=== PATIENT | male | born 1975 | race Caucasian/White ===

== ENCOUNTER 2019-04-26 13:25 | Emergency (ER) | payer BC ==
[2019-04-26] MEDS ORDERED: TETANUS & DIPHTHERIA TOX,ADULT 0.5 ML VIAL ONE (14:19)
[2019-04-26] MEDS ORDERED: PIPER/TAZO/NS 3.375gm 3.375 GM/100 ML BAG ONE (15:05)
[2019-04-26] MEDS ORDERED: BUPIVACAINE 0.5% PF 10 ML VIAL ONE (15:05)
[2019-04-26] MEDS ORDERED: LIDOCAINE 1% MPF 5 ML VIAL ONE (15:05)
--- NOTE | 2019-04-26 15:09 | RAD REPORT ---
EXAM DESCRIPTION: RAD - Hand Right 3 View - 04/26/2019 2:58 pm CLINICAL HISTORY: PAIN COMPARISON: <Comparisons> FINDINGS: Soft tissue swelling is seen along the dorsum of the hand. No acute fracture, dislocation or foreign body.
--- NOTE | 2019-04-26 15:33 | EDPHYS ---
Physician Documentation [facility] Name: Faraz Camara Age: 43 yrs Sex: Male : 1975 Arrival Date: 04/26/2019 Time: 13:25 Bed 25 Private MD: ED Physician Ishaan Holcomb HPI: 04/26 14:06 This 43 yrs old Male presents to ER via Ambulatory with complaints of Hand cp Injury. 14:06 The patient or guardian reports a laceration, pain, swelling, tenderness. The cp complaints affect the dorsum of right hand. Onset: The symptoms/episode began/occurred yesterday. 14:06 Context: Patient reports he was using pry bar to geno up house and hand slipped causing cp him to strike hand against wood. Patient reports he covered wound wound with OTC stitches. 14:06 Associated signs and symptoms: Pertinent negatives: cyanosis distally, decreased cp sensation distally, fever. Historical: - Allergies: 13:46 iv dye; aj1 - Home Meds: 13:46 Zetia Oral [Active]; Omeprazole Oral [Active]; aj1 - PMHx: 13:46 hemorrhoids; High Cholesterol; GERD; aj1 - Immunization history:: Flu vaccine is not up to date. - Social history:: Smoking status: Patient/guardian denies using tobacco. - Ebola Screening: : Patient denies travel to an Ebola-affected area in the 21 days before illness onset. ROS: 14:10 Constitutional: Negative for body aches, chills, fever, poor PO intake. cp 14:10 Eyes: Negative for injury, pain, redness, and discharge. cp 14:10 ENT: Negative for drainage from ear(s), ear pain, sore throat, difficulty swallowing, difficulty handling secretions. 14:10 Cardiovascular: Negative for chest pain. 14:10 Respiratory: Negative for cough, shortness of breath, wheezing. 14:10 Abdomen/GI: Negative for abdominal pain, nausea, vomiting, and diarrhea, constipation. 14:10 MS/extremity: Positive for erythema, laceration, pain, swelling, tenderness, of the dorsum right metacarpal head fifth finger, Negative for paresthesias. 14:10 All other systems are negative. Exam: 14:30 Constitutional: The patient appears in no acute distress, alert, awake, non-toxic, well cp developed, well nourished. 14:30 Head/Face: Normocephalic, atraumatic. cp 14:30 Chest/axilla: Inspection: normal. 14:30 Cardiovascular: Rate: normal, Rhythm: regular. 14:30 Respiratory: the patient does not display signs of respiratory distress, Respirations: normal, no use of accessory muscles, labored breathing, is not present. 14:30 Musculoskeletal/extremity: Extremities: grossly normal except: noted in the dorsal side right fifth MCP joint: erythema, laceration, swelling, tenderness, ROM: full active range of motion, in the right hand, Perfusion: the extremity is normally perfused throughout, Sensation intact. 14:30 Skin: cellulitis, that is moderate, on the right hand, injury, laceration(s), the wound is approximately 2.5 cm(s), of the dorsal side right fifth MCP joint, that can be described as contaminated, without bleeding, purulent drainage from wound. Vital Signs: 13:46 BP 129 / 89; Pulse 80; Resp 18; Temp 98.0; Pulse Ox 98% on R/A; Weight 95.25 kg (R); aj1 Height 6 ft. 1 in. (185.42 cm) (R); Pain 9/10; 15:00 BP 126 / 80; Pulse 81; Resp 18; Temp 98.1; Pulse Ox 100% on R/A; mg2 16:15 BP 122 / 78; Pulse 81; Resp 18; Temp 98; Pulse Ox 100% on R/A; Pain 2/10; mg2 13:46 Body Mass Index 27.71 (95.25 kg, 185.42 cm) aj1 MDM: 13:52 Patient medically screened. cp 14:00 Differential diagnosis: dislocation, open fracture, cellulitis. cp 15:30 Data reviewed: vital signs, nurses notes, radiologic studies, plain films, I have cp discussed the patient's presentation/case with the attending Emergency Department Physician; and as a result, I will discharge patient. 15:30 Test interpretation: by ED physician or midlevel provider: plain radiologic studies. cp Counseling: I had a detailed discussion with the patient and/or guardian regarding: the historical points, exam findings, and any diagnostic results supporting the discharge/admit diagnosis, radiology results, the need for outpatient follow up, a hand specialist, to return to the emergency department if symptoms worsen or persist or if there are any questions or concerns that arise at home. Response to treatment: the patient's symptoms have markedly improved after treatment, VSS. Laceration cleaned and irrigated. Wound culture obtained. Wound left open and dressed. Will discharge to home for continued monitoring. 04/26 14:42 Order name: Wound Culture 04/26 13:57 Order name: XRAY Hand RIGHT 3 View; Complete Time: 15:12 04/26 15:12 Interpretation: Report reviewed. 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 Exp: mg2 01/17/2021. Lot #: [id number]. } Route: IM; Site: right deltoid; 14:55 Follow up: Response: No adverse reaction mg2 15:07 Drug: Zosyn 3.375 grams Route: IVPB; Infused Over: 60 mins; Site: left antecubital; la1 16:11 Follow up: Response: No adverse reaction; IV Status: Completed infusion mg2 Disposition: 16:35 Co-signature as Attending Physician, Ishaan Holcomb MD. rn Disposition: 04/26/19 15:32 Discharged to Home. Impression: Laceration without foreign body of right hand, Cellulitis of right upper limb - hand. - Condition is Stable. - Discharge Instructions: Cellulitis, Adult, Nonsutured Laceration Care. - Prescriptions for Augmentin 875- 125 mg Oral Tablet - take 1 tablet by ORAL route every 12 hours for 10 days; 20 tablet. Tramadol 50 mg Oral Tablet - take 1 tablet by ORAL route every 8 hours as needed; 12 tablet. Bactrim DS 800- 160 mg Oral Tablet - take 1 tablet by ORAL route every 12 hours for 10 days; 20 tablet. - Medication Reconciliation Form, Thank You Letter, Antibiotic Education, Prescription Opioid Use form. - Follow up: Francisco Schroeder MD; When: 1 - 2 days; Reason: Wound Recheck. - Problem is new. - Symptoms have improved. Signatures: Dispatcher [employer] EDKimberly Chávez RN RN aj1 Ishaan Holcomb MD MD rn Attema, Lee, RN RN la1 Page, Chin, PA PA cp Gardose, Sushil, RN RN mg2 Corrections: (The following items were deleted from the chart) 16:15 15:32 04/26/2019 15:32 Discharged to Home. Impression: Laceration without foreign body mg2 of right hand; Cellulitis of right upper limb - hand. Condition is Stable. Forms are Medication Reconciliation Form, Thank You Letter, Antibiotic Education, Prescription Opioid Use. Follow up: Francisco Schroeder; When: 1 - 2 days; Reason: Wound Recheck. Problem is new. Symptoms have improved. cp
--- NOTE | 2019-04-26 15:33 | ER ---
Nurse's Notes [facility] Name: Faraz Camara Age: 43 yrs Sex: Male : 1975 Arrival Date: 04/26/2019 Time: 13:25 Bed 25 Private MD: Diagnosis: Laceration without foreign body of right hand;Cellulitis of right upper limb-hand Presentation: 04/26 13:43 Presenting complaint: Patient states: "I was jacking up my back porch and I had a pry aj1 bar and it slipped and I hit my hand straight into the corner of a 4x4, this was yesterday." Laceration noted to right hand, occurred yesterday morning at 0800. Swelling noted to right hand. Transition of care: patient was not received from another setting of care. Onset of symptoms was April 25, 2019 at 08:00. Risk Assessment: Do you want to hurt yourself or someone else? Patient reports no desire to harm self or others. Initial Sepsis Screen: Does the patient meet any 2 criteria? No. Patient's initial sepsis screen is negative. Does the patient have a suspected source of infection? No. Patient's initial sepsis screen is negative. Care prior to arrival: None. 13:43 Method Of Arrival: Ambulatory aj1 13:43 Acuity: ELIZABETH 4 aj1 Triage Assessment: 13:46 General: Appears in no apparent distress. comfortable, Behavior is calm, cooperative, aj1 appropriate for age. Pain: Complains of pain in right hand Pain currently is 5 out of 10 on a pain scale. Neuro: Level of Consciousness is awake, alert, obeys commands, Oriented to person, place, time, situation. Cardiovascular: Patient's skin is warm and dry. Respiratory: Airway is patent Respiratory effort is even, unlabored, Respiratory pattern is regular, symmetrical. Musculoskeletal: Swelling present in right hand. Historical: - Allergies: 13:46 iv dye; aj1 - Home Meds: 13:46 Zetia Oral [Active]; Omeprazole Oral [Active]; aj1 - PMHx: 13:46 hemorrhoids; High Cholesterol; GERD; aj1 - Immunization history:: Flu vaccine is not up to date. - Social history:: Smoking status: Patient/guardian denies using tobacco. - Ebola Screening: : Patient denies travel to an Ebola-affected area in the 21 days before illness onset. Screenin:09 Abuse screen: Denies threats or abuse. Denies injuries from another. Nutritional mg2 screening: No deficits noted. Tuberculosis screening: No symptoms or risk factors identified. Fall Risk None identified. Assessment: 14:08 General: Appears in no apparent distress. comfortable, Behavior is calm, cooperative. mg2 Pain: Complains of pain in right hand Pain does not radiate. Pain currently is 3 out of 10 on a pain scale. Quality of pain is described as aching, Pain began suddenly, 1 day ago. Is intermittent. Neuro: Level of Consciousness is awake, alert, obeys commands, Oriented to person, place, time, situation. Cardiovascular: Capillary refill < 3 seconds Patient's skin is warm and dry. Respiratory: Airway is patent Respiratory effort is even, unlabored, Respiratory pattern is regular, symmetrical. GI: No signs and/or symptoms were reported involving the gastrointestinal system. : No signs and/or symptoms were reported regarding the genitourinary system. EENT: No signs and/or symptoms were reported regarding the EENT system. Derm: Wound noted right hand. Musculoskeletal: Circulation, motion, and sensation intact. Capillary refill < 3 seconds, Swelling present in right hand. Injury Description: Laceration sustained to right hand is not bleeding, was sustained 1 day ago. no active bleeding noted at this time. 15:47 Reassessment: patient up for discharge after iv antibiotic. mg2 Vital Signs: 13:46 BP 129 / 89; Pulse 80; Resp 18; Temp 98.0; Pulse Ox 98% on R/A; Weight 95.25 kg (R); aj1 Height 6 ft. 1 in. (185.42 cm) (R); Pain 9/10; 15:00 BP 126 / 80; Pulse 81; Resp 18; Temp 98.1; Pulse Ox 100% on R/A; mg2 16:15 BP 122 / 78; Pulse 81; Resp 18; Temp 98; Pulse Ox 100% on R/A; Pain 2/10; mg2 13:46 Body Mass Index 27.71 (95.25 kg, 185.42 cm) aj1 ED Course: 13:25 Patient arrived in ED. as 13:45 Triage completed. aj1 13:46 Arm band placed on Patient placed in an exam room. aj1 13:51 Chin Machuca PA is PHCP. cp 13:51 Ishaan Holcomb MD is Attending Physician. cp 13:52 Sushil Wong, DANIEL is Primary Nurse. mg2 14:09 Patient has correct armband on for positive identification. mg2 14:09 No provider procedures requiring assistance completed. mg2 14:59 XRAY Hand RIGHT 3 View In Process Unspecified. EDMS 15:04 Inserted saline lock: 20 gauge in left antecubital area, using aseptic technique. lt1 15:30 Francisco Schroeder MD is Referral Physician. cp 15:30 Wound care: to laceration located on right hand was cleaned with Betadine, irrigated mg2 with normal saline, dressed with Neosporin, 4X4s, by Brigette Neely Patient tolerated well. 16:11 IV discontinued, intact, bleeding controlled, No redness/swelling at site. Pressure mg2 dressing applied. 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 Exp: mg2 01/17/2021. Lot #: [id number]. } Route: IM; Site: right deltoid; 14:55 Follow up: Response: No adverse reaction mg2 15:07 Drug: Zosyn 3.375 grams Route: IVPB; Infused Over: 60 mins; Site: left antecubital; la1 16:11 Follow up: Response: No adverse reaction; IV Status: Completed infusion mg2 Outcome: 15:32 Discharge ordered by MD. cp 16:15 Discharged to home ambulatory, with family. mg2 16:15 Condition: stable 16:15 Discharge instructions given to patient, family, Instructed on discharge instructions, follow up and referral plans. medication usage, Demonstrated understanding of instructions, follow-up care, medications, wound care, Prescriptions given X 3. 16:15 Patient left the ED. mg2 Signatures: Dispatcher [employer] EDMD Kimberly White RN RN aj1 Corinne Painting Lee, RN RN la1 Chin Machuca PA PA cp Sushil Wong RN RN mg2 Claudia Chen lt1 Corrections: (The following items were deleted from the chart) 15:07 14:09 Patient did not have IV access during this emergency room visit. mg2 la1
== END 2019-04-26 16:15 | disposition home or self-care (01) ==
LOC: ER 13:25
DX: S61.411A Laceration without foreign body of right hand, initial encounter (principal); L03.113 Cellulitis of right upper limb; W22.8XXA Striking against or struck by other objects, initial encounter; E78.00 Pure hypercholesterolemia, unspecified; K21.9 Gastro-esophageal reflux disease without esophagitis; Z23 Encounter for immunization
CPT/HCPCS: 87070; 87205; 90471; 90714; 96365; 99284; J2543

== ENCOUNTER 2021-10-11 09:10 | Day surgery (SDC) | payer BC ==
[2021-10-10 15:00] LABS: Absolute Lymphocytes (CBC) 1.4 K/uL (0.7-4.9); Basophils % 0.7 % (0-1.3); Hematocrit 42.4 % (39.6-49.0); Lymphocytes % 30.7 % (15.3-44.8); MPV 8.1 fL (7.6-11.3); RBC Red Blood Cell Count 4.68 M/uL (4.33-5.43)
--- NOTE | 2021-10-10 15:03 | RAD REPORT ---
EXAM DESCRIPTION: RAD - Chest Pa And Lat (2 Views) - 10/10/2021 2:54 pm CLINICAL HISTORY: Pre Op pending cholecystectomy Chest pain. COMPARISON: Chest Single View dated 09/14/2017 FINDINGS: The lungs are clear. The heart is normal in size. No displaced fractures. IMPRESSION: No acute or concerning finding suspected.
[2021-10-10 15:44] LABS: Albumin 3.8 g/dL (3.4-5.0); Bilirubin Direct 0.2 mg/dL (0-0.2); Bilirubin Total 1.1 mg/dL (0.2-1.0); Potassium 3.6 mmol/L (3.5-5.1); Protein, Total 7.4 g/dL (6.4-8.2)
--- NOTE | 2021-10-11 07:50 | EKG ---
Test Date: 2021-10-10 Test Time: 14:34:21 Commercial Fisherman: JOVANNA MEASUREMENT RESULTS: Intervals: Rate: 63 UT: 178 QRSD: 104 QT: 398 QTc: 407 [place]: P: 68 UT: 178 QRS: 72 T: 79 INTERPRETIVE STATEMENTS: Normal sinus rhythm Normal ECG Compared to ECG 09/14/2017 16:27:32 Early repolarization no longer present Electronically Signed On 10-11-21 07:48:09 [facility] by Nacho Melissa
[2021-10-11] MEDS ORDERED: Ringers Lactate 1,000 ML IV ONE (09:26)
[2021-10-11] MEDS ORDERED: CEFOXITIN/NS 1gm 0 GM/0 ML BAG ONE (09:27)
[2021-10-11] MEDS ORDERED: propofoL 200 MG/20 ML VIAL IV ONE (10:20)
[2021-10-11] MEDS ORDERED: FENTANYL CITR 100 MCG/2 ML ONE (10:20)
[2021-10-11] MEDS ORDERED: LIDOCAINE 2% MPF 5 ML VIAL ONE (10:20)
[2021-10-11] MEDS ORDERED: MIDAZOLAM HCL 2 MG/2 ML INJ ONE (10:20)
[2021-10-11] MEDS ORDERED: GLYCOPYRROLATE 0.2 MG/ML SYR ONE ×3 (10:21→11:58)
[2021-10-11] MEDS ORDERED: ROCURONIUM 50 MG/5 ML VIAL IV ONE (10:21)
[2021-10-11] MEDS ORDERED: KETOROLAC 30 MG/ML INJ ONE (10:23)
[2021-10-11] MEDS ORDERED: dexAMETHasone 10 MG/ML VIAL ONE (10:23)
[2021-10-11] MEDS ORDERED: ONDANSETRON 4 MG/2 ML VIAL ONE (10:27)
[2021-10-11] MEDS: BUPIVACAINE 0.5% Inj,MDV 50 mL VIAL ONE ×2 (10:31→10:59)
[2021-10-11] MEDS: CEFOXITIN/NS 1gm 1 GM/50 ML BAG ONE ×3 (10:32→10:50)
--- NOTE | 2021-10-11 11:27 | P.BOP ---
Preoperative diagnosis: acute cholecystitis, RUQ abd pain, Biliary dyskinesia, umbilical hernia Postoperative diagnosis: same Primary procedure: 1. LAparoscopic cholecystectomy Secondary procedure: 2. repair of umbilical hernia Ux Engineer: YAEL MEADE (IS/IT PROJECT MANAGER) Estimated blood loss: <10cc Specimen: gb Findings: as above Anesthesia: General Complications: None Transferred to: Recovery Room Condition: Good
[2021-10-11] MEDS ORDERED: NEOSTIGMINE 1 MG/ML -5 ML ONE (11:29)
[2021-10-11] MEDS: HYDROMORPHONE HCL 1 MG/ML INJ ONE ×4 (11:52→12:09)
--- NOTE | 2021-10-11 12:33 | OP ---
Date of Procedure: 10/11/2021 Surgeon: Ty Painting MD Flour Mixer Helper: Sharon Bello. Preoperative Diagnoses: Acute cholecystitis, right upper quadrant abdominal pain, biliary dyskinesia , and umbilical hernia. Postoperative Diagnoses: Acute cholecystitis, right upper quadrant abdominal pain, biliary dyskinesi a, and umbilical hernia. Procedures Performed: Laparoscopic cholecystectomy and repair of umbilical hernia. Estimated Blood Loss: Less than 10 cc. Specimen: Gallbladder, hernia sac. Anesthesia: General plus local. Indication: This is the case of a male, who comes to us with above diagnosis. Fully explained the b enefits, alternatives, and risks of laparoscopic possible open cholecystectomy and also fix the umbil ical hernia with benefits, alternatives, and risks fully explained which include, but not limited to infection, bleeding, damage to adjacent structures, anesthesia complication, choledocholithiasis, julito e leak, pancreatitis, AL, and even . He also understands this may not relieve symptoms. He henry ht need more than one surgical intervention. He understood, signed a consent. Procedure In Detail: The patient was brought to the operating room and placed in supine position. A nesthesia was done without complication. Abdominal area was prepped and draped in usual sterile fash ion. Marcaine 0.5% was injected for local anesthetic followed by sharp incision of the skin in the i nfraumbilical region. Once we went there, we noticed the patient to have an umbilical hernia. Umbil ical sac was removed. Fascial edges were clean. We placed Vicryl #1 inside the fascia. Evan troc ar was carefully introduced. Pneumoperitoneum was obtained. I placed 3 more trocars, 5 mm each one of them, 1 epigastric area and 2 in the right upper quadrant under direct visualization. This allowe d me to put a grasper in the fundus of the gallbladder, another grasper in the infundibulum, retracti ng the gallbladder in the inferolateral fashion, exposing the triangle of Calot and obtaining critica l view. The cystic duct and cystic artery were clearly isolated, free circumferentially and a connec tion between those and the gallbladder was clearly identified. I proceeded to ligate those by using at least 3 clips proximal, 1 clip distal, ligation in middle. Same was done with the cystic artery. No bile leak. No bleeding. The gallbladder was removed from liver using Bovie cauterizer and remov ed from abdominal cavity using an EndoCatch through the umbilical incision. The area was inspected o nce again. No bile leak. No bleeding. At that moment, I proceeded to remove the trocars under dire ct vision. Deflated the pneumoperitoneum. Closed the fascia with #1 Vicryl. Irrigated subcutaneous tissue, also closed the umbilical hernia with #1 Vicryl. Irrigated subcutaneous tissue, closed that with 3-0 chromic and skin in a subcuticular fashion with 3-0 chromic and Steri-Strips on top. Spong e count and instrument counts correct. The patient tolerated the procedure well. The patient was se nt to recovery in stable condition. HARESH/EFRAIN Voice ID: [id number] Report ID: [id number]
[2021-10-11] MEDS ORDERED: HYDROCODONE/APAP 7.5/325 MG TAB ONE (13:17)
[2021-10-11 13:24] VITALS: TEMP 97; O2SAT 96
--- NOTE | 2021-10-11 13:24 | DS ---
Diagnoses: Acute cholecystitis, right upper quadrant abdominal pain, biliary dyskinesia, and umbilic al hernia. Procedures: Laparoscopic cholecystectomy and repair of umbilical hernia. Disposition: Home. Activity: As tolerated. No heavy lifting. Plan: Follow up in my office in 1 week. Call for appointment at [phone]. Keep area dry for 48 ambrocio rs, then may shower. Keep Steri-Strip intact. Medications: See orders. HARESH/EFRAIN Voice ID: [id number] Report ID: [id number]
[2021-10-11 14:10] VITALS: BP 130/90
== END 2021-10-11 14:00 | disposition home or self-care (01) ==
LOC: OR 09:10
PROVIDERS: ATTEND Surgery
PROC: 0FT44ZZ Resection of Gallbladder, Percutaneous Endoscopic Approach (ICD-10-PCS; principal; 2021-10-11 10:45)
PROC: 0WQF4ZZ Repair Abdominal Wall, Percutaneous Endoscopic Approach (ICD-10-PCS; 2021-10-11 10:45)
DX: K81.1 Chronic cholecystitis (principal); K42.9 Umbilical hernia without obstruction or gangrene; Z20.822 Contact with and (suspected) exposure to COVID-19
CPT/HCPCS: 36415; 71046; 80048; 80076; 82150; 83690; 85025; 88302; 88304; 93005; J0694; J1100; J1170; J2250; J2405; J2704; J2710; J3010; J7120; U0003

== ENCOUNTER 2022-07-16 12:53 | Emergency (ER) | payer BC ==
--- OUTSIDE RECORDS SUMMARY | 2022-07-16 12:57 | XMS REPORT | Continuity of Care Document ---
:1975 Author Organization [facility] t Address [address] [place] [address] Care Team Providers Name Role Phone JOSE DE JESUS WHYTE Primary Care Physician Unavailable Agustín Guillen Attending Clinician Unavailable Yamilex Painting RN Attending Clinician Unavailable Gloria Dominique Attending Clinician Love Snell Attending Clinician LOVE SNELL Attending Clinician Unavailable Marky Armstrong MD Attending Clinician MARKY ARMSTRONG Attending Clinician Unavailable Alisson Lloyd RN Attending Clinician Unavailable PERRY MERCER Attending Clinician Unavailable Rohan Cabrera Attending Clinician Unavailable Zach Castro Attending Clinician Physician, No Primary or Family Admitting Clinician UnavailRohan Salazar Admitting Clinician Unavailable Jose De Jesus Whyte Admitting Clinician Unavailable Payers Payer Name Policy Type Policy Number Effective Date Expiration Date [facility] [id number] 2018 00:00:00 Problems Condition Condition Condition Status Onset Resolution Last Treating Co mments Source Name Details Category Date Date Treatment Clinician Date Elevated Elevated Disease Active [facility] enzymes enzymes 00:00: t & Plan: Medic al 00 [facility] g of this note might be different from the original. Noted to have elevated liver enzymes in hepatocel lular pattern. ALT 2-3 times upper limit normal. Also noted to have mild hyperbili rubinemia ranging anywhere from 1.3-1.5. Risk factors include alcohol use, obesity and hyperlipi demia. Also takes fruit and vegetable supplemen ts. Comprehen sive work-up for acute viral and autoimmun e is negative. We will check for other metabolic and genetic causes of hepatic dysfuncti on. Ordered ultrasoun d abdomen with elastogra phy to assess for underlyin g degree of fibrosis. Recommend ed to stop drinking alcohol. Do not take any supplemen ts over-the- counter. Overweight Overweight Disease Active Last [facility] 02-20 [facility] [employer] 00:00: t & Plan: [facility] 00 [facility] g of this note might be different from the original. BMI this visit is 27.24 and weight 212lbs . We have recommend ed a weight loss program, along with dietary modificat ions and regular exercise for overall good health and to minimize the risk of progressi on to obesity and overweigh t -related complicat ions. Mixed Mixed Disease Active Last [facility] em[facility] 00:00: t & Plan: [facility] 00 [facility] g of this note might be different from the original. On ezetimibe . Continue lifestyle modificat ions including dietary changes and regular exercise. Encounter Encounter Disease Active Last [facility] for for 02-20 Assessmen [employer] screening screening 00:00: t & Plan: M edical for other for other 00 [facility] enter viral viral g of this diseases diseases note might be different from the original. CDC recommend s that all patients with chronic liver disease, regardles s of etiology, should be immunized to prevent hepatitis A and hepatitis B if they are not already immune. This should be done in addition to other age-appro priate vaccines. We will test for immunity to both viruses - vaccine recommend ations will follow. Alcohol Alcohol Disease Active Last [facility] use use 02-20 [facility] 00:00: t & Plan: Medical [address] [place], [place] [address]tin Center g of this note might be different from the original. Drinks 12 pack beer each time 3-4 times a month. We recommend ed complete abstinenc e from alcohol. Alcohol can cause fatty liver disease, alcoholic hepatitis , cirrhosis , pancreati tis and other organ diseases. We provided informati on for our behaviour al therapist Dr. Unique Fletcher if he needs assistanc e with quitting alcohol. Fatty Fatty Disease Active Last [facility] liver liver 02-20 [facility] 00:00: t & Plan: Medical 00 [facility] g of this note might be different from the original. Per PCP patient was diagnosed to have fatty liver, unsure if it was based on imaging as we do not have any imaging right now. Risk factors include alcohol use, obesity and hyperlipi demia. The liver can become inflamed (hepatiti s) and scarring/ fibrosis can result. So we also ordered ultrasoun d elastogra phy to evaluate for staging of fibrosis. Counseled patient to adopt healthy lifestyle changes including low carbohydr ate diet, regular exercise and weight loss.Prov ided patient with education on fatty liver disease. Hyperlipid Hyperlipi Problem Active 2020-09-23 Memoria emia demia 01:19:36 l (disorder) (disorder) He rmann Active Problem 09/23/2020 [facility] Cervical Cervical Problem Active 2020-09-23 [facility]oria radiculopa radiculopa 01:19:36 l thy thy Alonso (disorder) (disorder) Active Problem 09/23/2020 [facility] No known No known Disease Unive rs active active ity of problems problems [facility] Allergies, Adverse Reactions, Alerts Allergy Allergy Status Severity Reaction(s) Onset Inactive Treating Comm ents Source Name Type Date Date Clinician Iodinate Drug Active Other [facility] Allergy 01-20 reaction( [facility] Contrast 00:00: s): Medical Media GENERALIZ Center ED HIVES IODINATE Allergy Active [facility] CONTRAST 00:00: Medical MEDIA 00 Center Iodinate DA Active [facility] - Clear Contrast 00:00: [employer] [facility] Iodinate DA Active [facility] GENERALIZED [facility] d HIVES - Clear Contrast 00:00: [employer] [facility] No Known DA Active U [facility] 04[facility]12 [place] [facility] 00:[facility]: [facility] No Known DA Active U UNKNOWN [facility] 6-16 [place] All[facility]ie 00:00: [facility] iodine iodine Active Moderate Weal Memoria (disorder) l Lynch NO KNOWN Drug Active [facility] ALLERG Class ity of S [facility] Family History Family Member Diagnosis Comments Start Date Stop Date Source Natural father Heart disease [facility] Natural mother Cancer [facility] Social History Social Habit Start Date Stop Date Quantity Comments Source Exposure to Not sure [facility]-CoV-2 [facility] (event) [place] Tobacco use and 2022-02-20 2022-02-20 Never used [facility] exposure 00:00:00 00:00:00 [facility] Alcohol intake 2022-02-20 2022-02-20 Ex-drinker [facility] 00:00:00 00:00:00 (finding) [facility] Social History 2020-08-08 2020-08-08 [facility] 13:54:26 13:54:26 Sex Ass[birth year] At [birth year] [facility] 00:00:00 00:00:00 [facility] Smoking Status Start Date Stop Date Source Unknown if ever smoked [facility] Never smoker [facility] Medications Ordered Filled Start Stop Current Ordering Indication Dosage Frequency Signature Comments Components Source Medication Medication Date Date Medication? Clinician (SIG) Name Name ezetimibe Yes [facility] (ZETIA) 10 4-15 [facility] mg tablet 00:00: [address] esomeprazol Yes 40mg QD Take [address] e (NexIUM) 3-15 by mouth [facility] 40 MG 00:00: daily. Medical capsule Center No known No Univers medications - ity of 14:47: [address] {2019-10 No See Memoria (Methylpred 0-27 Instructio l nisolone 4 22:30: ns, PO, Herm misbah MG Oral 00 Take by Tablet mouth as [Medrol]) } directed Pack on label., [Medrol X 6 day, # Dosepak] 21 tab, 0 Refill(s), Pharmacy: [facility] #[id number], 187.96, cm, 08/08/20 8:28:00 CDT, Height, 95.455, kg, 08/08/20 8:28:00 CDT, Weight baclofen 10 2019-10 Yes 10 mg = 1 M emoria mg oral 0-12 tab, PO, l tablet 14:00: Bedtime, # Izzy nn 00 30 tab, 3 Refill(s), Pharmacy: [id number], 187.96, cm, 08/08/20 8:28:00 CDT, Height, 95.455, kg, 08/08/20 8:28:00 CDT, Weight Esomeprazol 2019-10 Yes 0 Memori a e 0-12 Refill(s) l 13:45: Lynch 00 200 ACTUAT 2019-10 Yes 1 puff, Nehemias scotty Albuterol 0-12 INHALER, l 0.09 13:45: QID, PRN Alonso MG/ACTUAT 00 for Metered wheezing, Dose # 25 gm, 0 Inhaler Refill(s) [Proventil] Zetia 2019-10 Yes 5 mg, PO, Memoria 0-12 Daily, 0 l 13:38: Refill(s) Lynch 00 Vital Signs Vital Name Observation Time Observation Value Comments Source HEIGHT 2022-02-20 14:34:00 188 cm WEIGHT 2022-02-20 14:34:00 96.253 kg HEIGHT 2022-02-20 14:34:00 188 cm WEIGHT 2022-02-20 14:34:00 96.253 kg Systolic blood 2022-02-20 14:34:00 120 mm[Hg] [facility] Diastolic blood 2022-02-20 14:34:00 83 mm[Hg] [facility] Heart rate 2022-02-20 14:34:00 67 /min [facility] Body temperature 2022-02-20 14:34:00 36.89 [facility] Respiratory rate 2022-02-20 14:34:00 18 /min [facility] Body height 2022-02-20 14:34:00 188 cm [facility] Body weight 2022-02-20 14:34:00 96.253 kg [facility] BMI 2022-02-20 14:34:00 27.24 kg/m2 [facility] Oxygen saturation in 2022-02-20 14:34:00 98 /min [facility] Arterial blood by Medical Ce nter Pulse oximetry Systolic (mm Hg) 2020-08-08 13:28:00 Nehemias Gupta Diastolic (mm Hg) 2020-08-08 13:28:00 José Luis Gupta Heart Rate 2020-08-08 13:28:00 [facility] Resp[facility] Rate 2020-08-08 13:28:00 Deanna Cardozo Height 2020-08-08 13:28:00 187.96 cm [facility] Weight 2020-08-08 13:28:00 [facility] BMI Calculated 2020-08-08 13:28:00 Deanna aguilar [facility] Procedures Procedure Date / Time Performing Clinician Source Performed HEPATITIS B SURFACE 2022-03-23 07:17:00 [facility] HEPATITIS B CORE 2022-03-23 07:17:00 [facility] US ABDOMEN COMPLETE 2022-03-08 13:00:00 [facility] US ELASTOGRAPHY ORGAN 2022-03-08 13:00:00 [facility] [id number] 2021-01-25 00:00[facility]00 [id number] 2021-01-25 00:00[facility] Knee joint operation [facility] Sinusotomy [facility] Plan of Care Planned Activity Planned Date Details Comments Source Future Scheduled 2022-06-28 INFLUENZA VACCINE (#1) [facility] 00:00:00 [code = INFLUENZA Medical Ce nter VACCINE (#1)] Future Scheduled 2021-10-[address] [facility] Test 00:00:00 (12+) [code = Medical Center DEPRESSION SCREENING (12+)] Future Scheduled 2008 Lipid panel (procedure) [facility] Test 00:00:00 [code = 69081071] Medical Ce nter Future Scheduled 1992 DTAP/TDAP/TD VACCINES [facility] 00:00:00 (1 - Tdap) [code = Medical C enter DTAP/TDAP/TD VACCINES (1 - Tdap)] Future Scheduled 1991 HEPATITIS C SCREENING [facility] Test 00:00:00 [code = HEPATITIS C Medical Center SCREENING] Future Scheduled 1974-04-18 COVID-19 VACCINE (#1) [facility] Test 00:00:00 [code = COVID-[address] VACCINE (#1)] Future Scheduled 1973 CT Colonography (combo) [facility] Test 00:00:00 [code = CT Colonography [facility] (combo)] Future Scheduled 1973 Screening for malignant [facility] Test 00:00:00 neoplasm of colon Medical Ce nter (procedure) [code = 927545374] Future Scheduled 1973 Screening for malignant [facility] Test 00:00:00 neoplasm of colon Medical Ce nter (procedure) [code = 167909842] Future Scheduled 1973 Screening for malignant [facility] Test 00:00:00 neoplasm of colon Medical Ce nter (procedure) [code = 386126837] Future Scheduled 1973 Screening for malignant [facility] Test 00:00:00 neoplasm of colon Medical Ce nter (procedure) [code = 180022003] Future Scheduled 1975 Sigmoidoscopy [code = [facility] Test 00:00:00 Sigmoidoscopy] Medical Cente r Encounters Start End Encounter Admission Attending Care Care Encounter Source Date/Time Date/Time Type Type Clinicians Facility Department ID 2020-10-03 [id number] 09:15:[address] [facility] 2022-04-02 2022-04-02 Telephone Mert [facility] [id number] 00:[facility]00 00:00[facility]00 [facility] 2022-03-13 2022-03-13 Telephone Elsie [facility] [id number] 00:00:00 00:00:00 Gloria Olivares [facility] 2022-03-08 2022-03-08 [facility] [id number] 11:47:30 23:59:00 Encounter [facility] 2022-03-08 2022-03-08 Outpatient FAY CHAUHAN [facility] [id number] [facility] 11:47:30 23:59:00 LOVE 2022-02-20 2022-02-[address] [facility] [place] [facility] [id number] 15:00:00 16:00:[address] [facility] 2022-02-20 2022-02-20 Outpatient FAY BARBER [facility] [id number] SLE 14:26:07 14:26:07 [facility] 2021-12-09 2021-12-09 Outpatient R [facility] [id number] Univers 09:00:00 09:00:00 [id number] [facility] 2021-12-09 2021-12-09 Outpatient R [facility] [id number] Univers 09:00:00 09:00:00 [facility] 2021-07-20 2021-07-20 Telephone PEGGY Lloyd [id number] Univers 00:00:00 00:00:00 Alisson CALDERON [id number] [facility] [id number] Jose as [id number] [address] 2021-07-19 2021-07-19 Outpatient R SYLVIE [facility] [id number] Univers 15:00:00 15:00:00 PERRY [facility] 2021-01-28 2021-01-25 Inpatient RADHA Liang HCATO [id number] [facility] 03:57:26 15:00:00 Rohan 13 [place] [facility] 2021-01-20 2021-01-20 Outpatient ELLIOT CabreraCL LABO [id number] [facility] 17:47:00 17:47:00 Rohan 31 [facility] 2020-12-29 2020-12-29 Outpatient ELLIOT CabreraARABELLA HCATO [id number] [facility] 13:35:21 13:35:21 Rohan 80 [place] [facility] 2020-09-19 2020-09-21 Outside nullFlavo MNA [id number] Memoria 15:48:47 05:59:59 Medical r Neurology 00 l Records Enma Gupta 2020-09-19 2020-09-20 [id number] 09:48:47 23:59:59 00 2020-09-09 2020-09-09 Ambulatory nullFlavo MNA [id number] [facility] 15:45:00 15:45:00 Pre-Reg r Neurology 01 l Enma Gupta 2020-09-09 2020-09-09 Outpatient CYNTHIAIE DOMINGUEZ [id number] Memoria 09:45:00 09:45:00 01 l Alonso 2020-09-09 2020-09-09 Outpatient CHANDLER Castro [place] [id number] 09:45:00 09:45:00 Zach 01 Shai 2020-08-08 2020-08-09 Outpatient nullFlavo MNA [id number] Mem[facility] 13:30:00 04:59:59 r Neurology 00 l Enma Gupta 2020-08-08 2020-08-08 Outpatient CHANDLER Castro [place] [id number] 08:30:00 23:59:59 Zach 00 Shai 2020-08-08 2020-08-08 Outpatient DOMINGUEZ MIX [id number] Memoria 08:30:00 08:30:00 00 dell Gupta Results Test Description Test Time Test Comments Results Result Comments Source Hepatitis B surface antigen 2022-03-24 08:14:00 Test Item Value Reference Range Interpretation Comme nts Hepatitis B Surface Ag (test code = NON-REACTIVE NON-REACTIVE 20200527) GRABIEL (test code = GRABIEL) FASTING:YES FASTING: YES [facility], [id number] 08:14:00 Test Item Value Reference Range Interpretation Comments Hep B Core Total Ab NON-REACTIVE NON-REACTIVE (test code = 10523-2) GRABIEL (test code = GRABIEL) FASTING:YES FASTING: YES [facility], [facility]BD[facility]INAL, [id number] 17:11:00Referring: Jose De Jesus Wesleyerform elastography to assess for fibrosis.perform elastographyReason for Exam:->Elevated liver enzymes and concern for fatty liverperform elastography [facility] CENTERName: SANTANA VICTORIA : 1975 Sex: MFINAL REPORT TECHNIQUE: Grayscale ultrasound of the abdomen with shear wave elastography assessment of liver tissue stiffness. INDICATION: PERFORM ELASTOGRAPHY TO ASSESS FOR FIBROSIS. COMPARISON: None. FINDINGS: MIDLINE VASCULATURE: The visualized inferior vena cava is unremarkable. The maximum visualized aortic diameter is 2.1 cm. LIVER: Increased echogenicity. Smooth liver contour. No focal lesions. Elastography assessment of liver tissue stiffness reveals average shear wave velocity of 1.24 m/sec. The main portal vein is patent and measures 1.1 cm in diameter. BILIARY:Gallbladder: Surgically absentCommon bile duct measures 0.3 cm, within normal limits. No intrahepatic biliary ductal dilatation. PANCREAS: Incompletely visualized due to overlying bowel gas. The partially visualized pancreatic body and tail are normal. SPLEEN: No splenomegaly. The spleen measures 11.4 cm in length. PERITONEUM: No free fluid. KIDNEYS: Normal in size bilaterally. No hydronephrosis. No sonographical ly evident solid mass lesion. IMPRESSION: 1.Diffuse fatty infiltration of the liver 2.Evaluation is unreliable given the elevated IQR/M of 0.72. Liver elastography assessment: High probability of beingnormal. * *Oneal Clements. Et al. Update to the Society of Radiologists in Ultrasound Liver Elastography Consensus Statement. Radiology. May 2020. Signed: Francisco Lewisort Verified Date/Time: 7:11:13 US, ELASTOGRAPHY [id number] 17:11:00Referring: Jose De Jesus WHITMOREeason for exam:->PERFORM ELASTOGRAPHY TO ASSESS FOR FIBROSIS [facility] CENTERName: SANTANA VICTORIA : 1975 Sex: MFINAL REPORT TECHNIQUE: Grayscale ultrasound of the abdomen with shear wave elastography assessment of liver tissue stiffness. INDICATION: PERFORM ELASTOGRAPHY TO ASSESS FOR FIBROSIS. COMPARISON: None. FINDINGS: MIDLINE VASCULATURE: The visualized inferior vena cava is unremarkable. The maximum visualized aortic diameter is 2.1 cm. LIVER: Increased echogenicity. Smooth liver contour. No focal lesions. Elastography assessment of liver tissue stiffness reveals average shear wave velocity of 1.24 m/sec. The main portal vein is patent and measures 1.1 cm in diameter. BILIARY:Gallbladder: Surgically absentCommon bile duct measures 0.3 cm, within normal limits. No intrahepatic biliary ductal dilatation. PANCREAS: Incompletely visualized due to overlying bowel gas. The partially visualized pancreatic body and tail are normal. SPLEEN: No splenomegaly. The spleen measures 11.4 cm in length. PERITONEUM: No free fluid. KIDNEYS: Normal in size bilaterally. No hydronephrosis. No sonographical ly evident solid mass lesion. IMPRESSION: 1.Diffuse fatty infiltration of the liver 2.Evaluation is unreliable given the elevated IQR/M of 0.72. Liver elastography assessment: High probability of beingnormal. * *Oneal Clements. Et al. Update to the Society of Radiologists in Ultrasound Liver Elastography Consensus Statement. Radiology. May 2020. Signed: Francisco Lewis MDReport Verified Date/Time: :11:13 [facility] W/AUTO [id number] 06:00:00 Test Item Value Reference Range Interpretation Comments WHITE BLOOD CELL (test code = WBC) 7.7 K/mm3 5.7-10.5 N RED BLOOD CELL (test code = RBC) 4.47 M/mm3 4.2-5.4 N HEMOGLOBIN (test code = HGB) 14.0 g/dL 12-16 N HEMATOCRIT (test code = HCT) 40.9 % 37-47 N MEAN CELL VOLUME (test code = MCV) 92 fL 80-98 N MEAN CELL HGB (test code = MCH) 31.3 pg 27-34 N MEAN CELL HGB CONCENTRATION (test 34.2 g/dL 30.8-34.1 H code = MCHC) RED CELL DISTRIBUTION WIDTH (test 12.1 % 11-16 N code = RDW) PLT (test code = PLT) 207 K/mm3 130-400 N MEAN PLATELET VOLUME (test code = 10.2 fL 8.9-12.1 N MPV) NEUTROPHIL % (test code = NT%) 71.0 % 45-70 H LYMPHOCYTE % (test code = LY%) 17.7 % 20-40 L MONOCYTE % (test code = MO%) 9.8 % 3-10 N EOSINOPHIL % (test code = EO%) 0.7 % 1-5 L BASOPHIL % (test code = BA%) 0.1 % 0.0-1.1 N NEUTROPHIL # (test code = NT#) 5.46 K/mm3 2.00-7.50 N LYMPHOCYTE # (test code = LY#) 1.36 K/mm3 1.50-4.00 L MONOCYTE # (test code = MO#) 0.75 K/mm3 0.2-0.8 N EOSINOPHIL # (test code = EO#) 0.05 K/mm3 0.04-0.4 N BASOPHIL # (test code = BA#) 0.01 K/mm3 0.02-0.10 L MANUAL DIFF REQUIRED (test code = NO MANUAL DIFF MDIFF) NUCLEATED RED BLOOD CELL (test 0 % 0-0 N code = NRBC) SPECIMEN COMMENT: POD #1Novel Coronavirus 2018 [id number] 20:44:00 Test Item Value Reference Range Interpretation Comments Novel Coronavirus Negative Negative Positive r esults are 2019 Inhouse (test indicativ e of the presence code = COVNONPUI) ofSARS-CoV -2 RNA, clinical correlation wit h patient historyand othe r diagnostic info rmation is necessary to determinepatien t infection status. Positiv e results do not rule out bacterial infection or co -infection with other viru ses. Negative result s do not preclude SARS-C oV-2 infection andsh ould not be used as the simran e basis for patient managementdecis ions. Negative result s must be combined with otherclinical observations, p atient history, and epidemiological information . Detection of SARS-CoV-2 RNA may be affe cted bysample collec tion methods, storag e conditions, and /or stageof infection. Danna l RNA mutations, vacc inations, antiviraltherap eutics, antibiotics, chemotherapeuti c orimmunosuppres rob drugs have not been e valuated for effectson d etection. Results are for the identification of SARS-CoV-2 RNA usingthe [employer] M2000 Sy stem under the [facility] Emergen cy UseAuthorizatio n. The testing is perf ormed by jael mcgregor in the procedures for the Christian M2000 molecular diagnostic SARS-CoV-2 assa y in vitro. Novel Coronavirus 2018 [id number] 20:43:00 Test Item Value Reference Range Interpretation Comments Novel Coronavirus Negative Negative Positive r esults are 2019 Inhouse (test indicativ e of the presence code = COVNONPUI) ofSARS-CoV -2 RNA, clinical correlation wit h patient historyand othe r diagnostic info rmation is necessary to determinepatien t infection status. Positiv e results do not rule out bacterial infection or co -infection with other viru ses. Negative result s do not preclude SARS-C oV-2 infection andsh ould not be used as the simran e basis for patient managementdecis ions. Negative result s must be combined with otherclinical observations, p atient history, and epidemiological information . Detection of SARS-CoV-2 RNA may be affe cted bysample collec tion methods, storag e conditions, and /or stageof infection. Danna l RNA mutations, vacc inations, antiviraltherap eutics, antibiotics, chemotherapeuti c orimmunosuppres rob drugs have not been e valuated for effectson d etection. Results are for the identification of SARS-CoV-2 RNA usingthe [employer] M2000 Sy stem under the FDA Emergen cy UseAuthorizatio n. The testing is perf ormed by jael mcgregor in the procedures for the [employer] M2000 molecular diagnostic SARS-CoV-2 assa y in vitro. COMPREHENSIVE METABOLIC [id number] 16:57:00 Test Item Value Reference Range Interpretation Comments SODIUM (test code = 141 mmol/L 136-145 N NA) POTASSIUM (test code = 3.9 mmol/L 3.5-5.1 N K) CHLORIDE (test code = 104.0 mmol/L 98-107 N CL) CARBON DIOXIDE (test 27.8 mmol/L 21-32 N code = CO2) GLUCOSE (test code = 95 mg/dL 70-110 N GLU) BLOOD UREA NITROGEN 15 mg/dL 7-18 N (test code = BUN) GLOMERULAR FILTRATION 74.1 >60 Unit o f measure: RATE (test code = GFR) mL/mi n/1.73 [id number] Range:Healthy Adults >90 mL/min/1.73 m2 For Chronic Kidney Disease: Stage II Mild Decrease i n GFR 60-90 Stage III Moderate Decrea se in GFR 30-59 St age IV Severe Decre ase in GFR 15-29 St age V Kidney Failur e <15 CREATININE (test code 1.07 mg/dL 0.55-1.30 N = CREAT) TOTAL PROTEIN (test 7.2 g/dL 6.4-8.2 N code = PROT) ALBUMIN (test code = 3.9 g/dL 3.4-5.0 N ALB) GLOBULIN (test code = 3.3 g/dL 2.2-4.2 N GLOB) ALBUMIN/GLOBULIN RATIO 1.2 0.7-2.0 N (test code = A/G) CALCIUM (test code = 9.0 mg/dL 8.2-10.1 N CA) BILIRUBIN TOTAL (test 1.20 mg/dL 0.2-1.00 H code = BILT) SGOT/AST (test code = 29.0 U/L 15-37 N AST) SGPT/ALT (test code = 91.0 U/L 12-78 H Please note new ALT) normal range. ALKALINE PHOSPHATASE 62 U/L 46-116 N TOTAL (test code = ALKP) COMPREHENSIVE METABOLIC [id number] 16:52:00 Test Item Value Reference Range Interpretation Comments SODIUM (test code = 141 mmol/L 136-145 N NA) POTASSIUM (test code = 3.9 mmol/L 3.5-5.1 N K) CHLORIDE (test code = 104.0 mmol/L 98-107 N CL) CARBON DIOXIDE (test 27.8 mmol/L 21-32 N code = CO2) GLUCOSE (test code = 95 mg/dL 70-110 N GLU) BLOOD UREA NITROGEN 15 mg/dL 7-18 N (test code = BUN) GLOMERULAR FILTRATION 74.1 >60 Unit o f measure: RATE (test code = GFR) mL/mi n/1.73 [id number] Range:Healthy Adults >90 mL/min/1.73 m2 For Chronic Kidney Disease: Stage II Mild Decrease i n GFR 60-90 Stage III Moderate Decrea se in GFR 30-59 St age IV Severe Decre ase in GFR 15-29 St age V Kidney Failur e <15 CREATININE (test code 1.07 mg/dL 0.55-1.30 N = CREAT) TOTAL PROTEIN (test 7.2 g/dL 6.4-8.2 N code = PROT) ALBUMIN (test code = 3.9 g/dL 3.4-5.0 N ALB) GLOBULIN (test code = 3.3 g/dL 2.2-4.2 N GLOB) ALBUMIN/GLOBULIN RATIO 1.2 0.7-2.0 N (test code = A/G) CALCIUM (test code = mg/dL 8.2-10.1 N CA) BILIRUBIN TOTAL (test 1.20 mg/dL 0.2-1.00 H code = BILT) SGOT/AST (test code = 29.0 U/L 15-37 N AST) SGPT/ALT (test code = 91.0 U/L 12-78 H Please note new ALT) normal range. ALKALINE PHOSPHATASE 62 U/L 46-116 N TOTAL (test code = ALKP) PROTHROMBIN [id number] 16:50:00 Test Item Value Reference Range Interpretation Comments PROTHROMBIN TIME 11.9 secs 10.1-12.5 N PATIENT (test code = PTP) INTERNATIONAL NORMAL 1.04 <2.0 RECOMME NDED THERAPEUTIC RATIO (test code = RANGE FOR ORAL INR) ANTICOAGULANTTR EATMENT: CONDITION INRPr ophylaxis of venous throm bosis in 2.0 - 3.0 high- risk medical or surg ical patientsTreatme nt of venous thrombos is 2.0 - 3.0Prevention o f embolism 2.0 - 3.0Prevention o f recurrent embol ism, or 3.0 - 4.5 patie nts with mechanical pros thetic intravascular v egan IS PATIENT ON ANTICOAGULANTS ? NHas Lab been notified if Patient is on Heparin Drip? NOTHROMBOPLASTIN TIME [id number] 16:50:00 Test Item Value Reference Range Interpretation Comments PTT ACTIVATED (test code = APTT) 37.6 secs 24.9-37.0 H IS PATIENT ON ANTICOAGULANTS ? NHas Lab been notified if Patient is on Heparin Drip? NOCBC W/AUTO [id number] 16:34:00 Test Item Value Reference Range Interpretation Comments WHITE BLOOD CELL (test code = WBC) 4.4 K/mm3 5.7-10.5 L RED BLOOD CELL (test code = RBC) 4.93 M/mm3 4.2-5.4 N HEMOGLOBIN (test code = HGB) 15.5 g/dL 12-16 N HEMATOCRIT (test code = HCT) 44.7 % 37-47 N MEAN CELL VOLUME (test code = MCV) 91 fL 80-98 N MEAN CELL HGB (test code = MCH) 31.4 pg 27-34 N MEAN CELL HGB CONCENTRATION (test 34.7 g/dL 30.8-34.1 H code = MCHC) RED CELL DISTRIBUTION WIDTH (test 12.3 % 11-16 N code = RDW) PLT (test code = PLT) 218 K/mm3 130-400 N MEAN PLATELET VOLUME (test code = 9.7 fL 8.9-12.1 N MPV) NEUTROPHIL % (test code = NT%) 48.6 % 45-70 N LYMPHOCYTE % (test code = LY%) 33.5 % 20-40 N MONOCYTE % (test code = MO%) 10.9 % 3-10 H EOSINOPHIL % (test code = EO%) 6.1 % 1-5 H BASOPHIL % (test code = BA%) 0.7 % 0.0-1.1 N NEUTROPHIL # (test code = NT#) 2.15 K/mm3 2.00-7.50 N LYMPHOCYTE # (test code = LY#) 1.48 K/mm3 1.50-4.00 L MONOCYTE # (test code = MO#) 0.48 K/mm3 0.2-0.8 N EOSINOPHIL # (test code = EO#) 0.27 K/mm3 0.04-0.4 N BASOPHIL # (test code = BA#) 0.03 K/mm3 0.02-0.10 N MANUAL DIFF REQUIRED (test code = NO MANUAL DIFF MDIFF) NUCLEATED RED BLOOD CELL (test 0 % 0-0 N code = NRBC) - CT UP EXTREM W/O CONT [id number] 08:20:00 [facility] 1975 Sex: M Patient Name: SANTANA VICTORIA Unit No: [id number] EXAMS: CPT CODE: [id number] CT UP EXTREM W/[place] [id number] TECHNIQUE: Volumetric CT data of the right shoulder was obtained without use of intravenous contrast. Images were then viewed in the axial, coronal and sagittal planes. CT radiation dose optimization is achieved for this examination by the use of a CT protocol in accordance with ACR practice standards and adherence to mechanical technician's recommendations. INDICATION: PAIN RT SHOULDER COMPARISON: None. FINDINGS: Severe right glenohumeral osteoarthritis is demonstrated with marked joint space narrowing and large osteophytosis of both the humeral head and glenoid. Scattered subchondral cystic changeis greatest posteriorly. No acute fracture. The AC joint is unremarkable. Visualized right lung is clear. IMPRESSION: Severe right shoulder osteoarthritis. at 0820 Reported and signed by: Flo Monroy M.D. CC: Rohan Cabrera MD; Jose De Jesus Whyte MD Technologist: Edgardo Malloy,RT(R) CTDI: DLP: Trnscrpt: 12/30/2020 (0820) AmandaSLJ [facility] NAME: SANTANA VICTORIA [address] [facility] PHYS: Rohan York Fidel : 1975 AGE: 45 SEX: M [place], [place] [address] LOC: Y.RAD PHONE #: [phone] EXAM DATE: 12/29/2020 STATUS: DEP CLI FAX #: [phone] RAD #: D/C DT PAGE 1 Signed Report Patient Name: SANTANA VICTORIA Unit No: [id number] EXAMS: CPT CODE: [id number] CT UP EXTREM W/[place] [id number] (Continued) Orig Print D/T: S: 12/30/2020 (0823) [facility] NAME: SANTANA VICTORIA [address] [facility] PHYS: JOSE R CabreraRohan Parra : 1975 AGE: 45 SEX: M [place], [place] [address] LOC: Y.RAD PHONE #: [phone] EXAM DATE: 12/29/2020 STATUS: DEP CLI FAX #: [phone] RAD #: D/C DT PAGE 2 Signed Report
[2022-07-16] MEDS ORDERED: ASPIRIN 81 MG CHEWABLE TABLET ONE (13:18)
[2022-07-16 13:55] LABS: Absolute Lymphocytes (CBC) 1.2 K/uL (0.7-4.9); Hematocrit 41.6 % (39.6-49.0); Lymphocytes % 28.8 % (15.3-44.8); MCV 89.9 fL (80-100); MPV 7.8 fL (7.6-11.3); RBC Red Blood Cell Count 4.63 M/uL (4.33-5.43)
--- NOTE | 2022-07-16 13:59 | RAD REPORT ---
EXAM DESCRIPTION: Carmen Single View07/16/2022 1:53 pm CLINICAL HISTORY: Chest pain COMPARISON: 2020 FINDINGS: The lungs appear clear of acute infiltrate. The heart is normal size IMPRESSION: No acute abnormalities displayed
[2022-07-16 14:17] LABS: Albumin 3.8 g/dL (3.4-5.0); Bilirubin Direct 0.2 mg/dL (0-0.2); Magnesium 2.2 mg/dL (1.8-2.4); Potassium 3.7 mmol/L (3.5-5.1); Protein, Total 7.2 g/dL (6.4-8.2); Protime INR 1.08; Troponin High Sensitivity 8.7 pg/mL (<58.9)
--- NOTE | 2022-07-16 14:42 | EDPHYS ---
Physician Documentation [facility] Name: Faraz Camara Age: 46 yrs Sex: Male : 1975 Arrival Date: 07/16/2022 Time: 12:55 Bed 13 Private MD: ED Physician Tahira Dorantes HPI: 07/16 13:10 This 46 yrs old Male presents to ER via Ambulatory with complaints of Chest Pain, Neck jh7 Pain, <24hrs Old, Arm Pain. 13:10 Onset: The symptoms/episode began/occurred last night. Associated signs and symptoms: jh7 Pertinent positives: Neck pain and left shoulder pain. Patient reports left neck and shoulder pain keeping him awake last night. States that the pain has radiated to the left side of his chest since this morning. Reports that the pain is tender to palpation and worsens with movement of the left arm. Denies any cardiac history, but states that he got a stress test in 2020.. Historical: - Allergies: 13:10 iv dye; ph - PMHx: 13:10 GERD; hemorrhoids; High Cholesterol; ph - Immunization history:: Adult Immunizations unknown. - Social history:: Smoking status: Patient denies any tobacco usage or history of. ROS: 13:10 Constitutional: Negative for fever, chills, and weight loss, Eyes: Negative for injury, jh7 pain, redness, and discharge, ENT: Negative for injury, pain, and discharge. 13:10 Respiratory: Negative for shortness of breath, cough, wheezing, and pleuritic chest pain, Abdomen/GI: Negative for abdominal pain, nausea, vomiting, diarrhea, and constipation, Back: Negative for injury and pain, Skin: Negative for injury, rash, and discoloration, Neuro: Negative for headache, weakness, numbness, tingling, and seizure. 13:10 Neck: Positive for pain with movement, stiffness, Negative for injury or acute deformity, tenderness. 13:10 Cardiovascular: Positive for chest pain, Negative for palpitations. 13:10 MS/extremity: Positive for Left shoulder and left neck pain. 13:10 All other systems are negative. Exam: 13:10 Constitutional: This is a well developed, well nourished patient who is awake, alert, jh7 and in no acute distress. Head/Face: Normocephalic, atraumatic. Eyes: Pupils equal round and reactive to light, extra-ocular motions intact. Lids and lashes normal. Conjunctiva and sclera are non-icteric and not injected. Cornea within normal limits. Periorbital areas with no swelling, redness, or edema. 13:10 ENT: Nares patent. No nasal discharge, no septal abnormalities noted. Oropharynx with no redness, swelling, or masses, exudates, or evidence of obstruction, uvula midline. Mucous membranes moist. Cardiovascular: Regular rate and rhythm with a normal S1 and S2. No gallops, murmurs, or rubs. Normal PMI, no JVD. No pulse deficits. Respiratory: Lungs have equal breath sounds bilaterally, clear to auscultation and percussion. No rales, rhonchi or wheezes noted. No increased work of breathing, no retractions or nasal flaring. Abdomen/GI: Soft, non-tender, with normal bowel sounds. No distension or tympany. No guarding or rebound. No evidence of tenderness throughout. Back: No spinal tenderness. No costovertebral tenderness. Full range of motion. Skin: Warm, dry with normal turgor. Normal color with no rashes, no lesions, and no evidence of cellulitis. MS/ Extremity: Pulses equal, no cyanosis. Neurovascular intact. Full, normal range of motion. Neuro: Awake and alert, GCS 15, oriented to person, place, time, and situation. Motor strength 5/5 in all extremities. Sensory grossly intact. Normal gait. 13:10 Neck: External neck: is normal, ROM/movement: pain, that is mild, with rotation to the right, Pain elicited over the left trapezius muscle with movement of the neck and left upper extremity. Vital Signs: 13:09 BP 130 / 85; Pulse 72; Resp 18; Temp 97.5; Pulse Ox 98% on R/A; Weight 95.25 kg; Height ph 6 ft. 2 in. (187.96 cm); 13:10 BP 124 / 84; Pulse 79; Resp 18; Pulse Ox 100% on R/A; tp1 14:00 BP 122 / 85; Pulse 62; Resp 17; Pulse Ox 100% on R/A; tp1 15:11 BP 123 / 86; Pulse 62; Resp 17; Pulse Ox 100% on R/A; tp1 13:09 Body Mass Index 26.96 (95.25 kg, 187.96 cm) ph MDM: 12:58 Patient medically screened. [facility] 13:10 Differential diagnosis: Acute PA, trapezius muscle spasm, pneumonia. Data reviewed: [facility] vital signs, nurses notes, lab test result(s), EKG, radiologic studies, plain films. Data interpreted: Pulse oximetry: is 100 %. Interpretation: normal. Counseling: I had a detailed discussion with the patient and/or guardian regarding: the historical points, exam findings, and any diagnostic results supporting the discharge/admit diagnosis, to return to the emergency department if symptoms worsen or persist or if there are any questions or concerns that arise at home. 07/16 13:02 Order name: Basic Metabolic Panel; Complete Time: 14:30 [facility] 07/16 13:02 Order name: CBC with Diff; Complete Time: 14: [facility] 07/16 13:02 Order name: LFT's; Complete Time: 14:30 [facility] 07/16 13:02 Order name: Magnesium; Complete Time: 14:30 [facility] 07/16 13:02 Order name: NT PRO-BNP; Complete Time: 14:30 [facility] 07/16 13:02 Order name: PT-INR; Complete Time: 14:30 [facility] 07/16 13:02 Order name: Troponin HS; Complete Time: 14:30 [facility] 07/16 13:02 Order name: XRAY Chest (1 view); Complete Time: 14:11 [facility] 07/16 13:02 Order name: EKG; Complete Time: 13:03 [facility] 07/16 13:02 Order name: Cardiac monitoring; Complete Time: : [facility] 07/16 13:02 Order name: EKG - Nurse/Tech; Complete Time: : [facility] 07/16 13:02 Order name: IV Saline Lock; Complete Time: : [facility] 07/16 13:02 Order name: Labs collected and sent; Complete Time: : [facility] 07/16 13:02 Order name: O2 Per Protocol; Complete Time: : [facility] 07/16 13:02 Order name: O2 Sat Monitoring; Complete Time: : [facility] EC:10 Rate is 63 beats/min. Rhythm is regular. QRS [place] is Normal. FL interval is normal at [facility] 176 msec. QRS interval is normal at 98 msec. QT interval is normal at 400 msec. No Q waves. T waves are Normal. No ST changes noted. Clinical impression: Normal ECG. Administered Medications: 13:10 Drug: Aspirin Chewable Tablet 324 mg Route: PO; tp1 14:30 Follow up: Response: No change in condition tp1 15:11 Drug: Flexeril (cyclobenzaprine) 10 mg Route: PO; tp1 15:22 Follow up: Response: Medication administered at discharge. tp1 Disposition: 07/17 07:30 STAFF ATTESTATION STATEMENT: I was immediately available onsite in the emergency sd2 department for consultation in the care of this patient. I did not see or examine this patient. Tahira Dorantes MD. Disposition Summary: 07/16/22 14:41 Discharge Ordered Location: Home [facility] Problem: new [facility] Symptoms: have improved [facility] Condition: Stable [facility] Diagnosis - Muscle spasm 7 - Chest pain, unspecified 7 Followup: [facility] - With: Private Physician - When: 2 - 3 days - Reason: Recheck today's complaints Discharge Instructions: - Discharge Summary Sheet [facility] - Nonspecific Chest Pain, Adult jh7 - Muscle Cramps and Spasms [facility] Forms: - Medication Reconciliation Form [facility] - Thank You Letter [facility] Prescriptions: - Naprosyn 500 mg Oral Tablet - take 1 tablet by ORAL route 2 times per day take with food; 30 tablet; Refills: [facility] 0, Product Selection Permitted - Zanaflex 4 mg Oral Tablet - take 1 tablet by ORAL route every 8 hours As needed; 20 tablet; Refills: 0, jh7 Product Selection Permitted Signatures: Dispatcher [employer] Sofi Lozano FNP-C FNP-Suzanne Menchaca RN RN Jacquie Chavarria RN RN tp1 Unique Soto FNP FNP [facility] Tahira Dorantes MD MD mi2
--- NOTE | 2022-07-16 14:42 | ER ---
Nurse's Notes [facility] Name: Faraz Camara Age: 46 yrs Sex: Male : 1975 Arrival Date: 07/16/2022 Time: 12:55 Bed 13 [facility] MD: Diagnosis: Muscle spasm;Chest pain, unspecified Presentation: 07/16 13:09 Chief complaint: Patient states: L arm pain/numbness, L upper chest pain, neck pain ph that started " a few days ago." Also reports 1 episode of dizziness and fatigue. Coronavirus screen: Vaccine status: Patient reports being unvaccinated. Ebola Screen: No symptoms or risks identified at this time. Initial Sepsis Screen: Does the patient meet any 2 criteria? No. Patient's initial sepsis screen is negative. Does the patient have a suspected source of infection? No. Patient's initial sepsis screen is negative. Risk Assessment: Do you want to hurt yourself or someone else? Patient reports no desire to harm self or others. Onset of symptoms was July 16, 2022. 13:09 Method Of Arrival: Ambulatory ph 13:09 Acuity: ELIZABETH 3 ph Triage Assessment: 13:11 General: Appears in no apparent distress. Behavior is calm, cooperative. Pain: ph Complains of pain in anterior aspect of left upper chest and left arm Pain radiates to left posterior aspect of neck. Cardiovascular: Reports chest pain, fatigue. Historical: - Allergies: 13:10 iv dye; ph - PMHx: 13:10 GERD; hemorrhoids; High Cholesterol; ph - Immunization history:: Adult Immunizations unknown. - Social history:: Smoking status: Patient denies any tobacco usage or history of. Screenin:45 Abuse screen: Denies threats or abuse. Denies injuries from another. Nutritional tp1 screening: No deficits noted. Tuberculosis screening: No symptoms or risk factors identified. Fall Risk No fall in past 12 months (0 pts). No secondary diagnosis (0 pts). IV access (20 points). Ambulatory Aid- None/Bed Rest/Nurse Assist (0 pts). Gait- Normal/Bed Rest/Wheelchair (0 pts) Mental Status- Oriented to own ability (0 pts). Assessment: 13:10 General: Appears in no apparent distress. comfortable, Behavior is calm, cooperative. tp1 Pain: Complains of pain in neck and chest Pain radiates to left arm Pain currently is 2 out of 10 on a pain scale. Quality of pain is described as pressure, pinching, Pain began 1 day ago. Is continuous. Neuro: Level of Consciousness is awake, alert, obeys commands, Oriented to person, place, time, situation, Reports dizziness, Denies blurred vision headache. Cardiovascular: Capillary refill in bilateral fingers Patient's skin is warm and dry. Respiratory: Airway is patent Respiratory effort is even, unlabored. GI: Abdomen is flat, non-distended, Patient currently denies diarrhea, nausea, vomiting. : No signs and/or symptoms were reported regarding the genitourinary system. EENT: No signs and/or symptoms were reported regarding the EENT system. Derm: Skin is pink, warm \\T\\ dry. Musculoskeletal: Circulation, motion, and sensation intact. 14:20 Reassessment: Patient appears in no apparent distress at this time. No changes from tp1 previously documented assessment. Patient and/or family updated on plan of care and expected duration. Pain level reassessed. Patient is alert, oriented x 3, equal unlabored respirations, skin warm/dry/pink. pain has not changed. continues to rate pain 2/10. Vital Signs: 13:09 BP 130 / 85; Pulse 72; Resp 18; Temp 97.5; Pulse Ox 98% on R/A; Weight 95.25 kg; Height ph 6 ft. 2 in. (187.96 cm); 13:10 BP 124 / 84; Pulse 79; Resp 18; Pulse Ox 100% on R/A; tp1 14:00 BP 122 / 85; Pulse 62; Resp 17; Pulse Ox 100% on R/A; tp1 15:11 BP 123 / 86; Pulse 62; Resp 17; Pulse Ox 100% on R/A; tp1 13:09 Body Mass Index 26.96 (95.25 kg, 187.96 cm) ph ED Course: 12:55 Patient arrived in ED. rg4 12:58 Unique Soto FNP is [facility]. jh7 12:58 Tahira Dorantes MD is Attending Physician. jh7 13:08 Jacquie Chavarria, DANIEL is Primary Nurse. tp1 13:10 Triage completed. ph 13:10 Arm band placed on Patient placed in an exam room, on a stretcher, on customer contact representative, ph on pulse oximetry. 13:10 Patient has correct armband on for positive identification. Bed in low position. Call tp1 light in reach. 13:10 Client placed on continuous cardiac and pulse oximetry monitoring. NIBP monitoring tp1 applied. 13:10 Patient maintains SpO2 saturation greater than 95% on room air. tp1 13:10 No provider procedures requiring assistance completed. tp1 13:20 Missed attempt(s): 20 gauge in right forearm. vg1 13:25 Initial lab(s) drawn, by me, sent to lab. Inserted saline lock: 20 gauge in right vg1 antecubital area, using aseptic technique. Blood collected. 13:55 XRAY Chest (1 view) In Process Unspecified. EDMS 15:24 IV discontinued, intact, bleeding controlled, No redness/swelling at site. Pressure tp1 dressing applied. Administered Medications: 13:10 Drug: Aspirin Chewable Tablet 324 mg Route: PO; tp1 14:30 Follow up: Response: No change in condition tp1 15:11 Drug: Flexeril (cyclobenzaprine) 10 mg Route: PO; tp1 15:22 Follow up: Response: Medication administered at discharge. tp1 Medication: 15:25 VIS not applicable for this client. tp1 Outcome: 13:10 Discharged to home ambulatory. tp1 13:10 Condition: good 13:10 Discharge instructions given to patient, Instructed on discharge instructions, follow up and referral plans. medication usage, Demonstrated understanding of instructions, follow-up care, medications, Prescriptions given X 2. 14:41 Discharge ordered by . jh7 15:26 Patient left the ED. tp1 Signatures: Dispatcher [employer] EDAZ Suzanne Avery, RN RN Ai Howe4 Clotilde Armenta, RN RN vg1 Jacquie Chavarria, RN RN tp1 Unique Soto, GIS TECHNICIAN GIS TECHNICIAN 7
[2022-07-16] MEDS ORDERED: CYCLOBENZAPRINE 10 MG TAB ONE (14:57)
[2022-07-17 18:26] VITALS: O2SAT 100
[2022-07-17 18:34] VITALS: TEMP 97.5
[2022-07-17 19:02] VITALS: BP 123/86
--- NOTE | 2022-07-18 06:36 | EKG ---
Test Date: 2022-07-16 Test Time: 13:11:08 [employer] Clerk: DAVID MEASUREMENT RESULTS: Intervals: Rate: 63 IA: 176 QRSD: 98 QT: 400 QTc: 409 [place]: P: 62 IA: 176 QRS: 84 T: 53 INTERPRETIVE STATEMENTS: Normal sinus rhythm Normal ECG Compared to ECG 10/10/2021 14:34:21 No significant changes Electronically Signed On 07-18-22 06:32:01 CDT by Nacho Melissa
== END 2022-07-16 15:26 | disposition home or self-care (01) ==
LOC: ER 12:53
DX: R07.89 Other chest pain (principal); M62.838 Other muscle spasm; M54.2 Cervicalgia; Z91.041 Radiographic dye allergy status
CPT/HCPCS: 36415; 71045; 80048; 80076; 83735; 83880; 84484; 85025; 85610; 93005; 99284